=== PATIENT | female | born 1985 | race Caucasian/White ===

== ENCOUNTER 2020-11-07 04:13 | Emergency (ER) | payer SELFPAY ==
[2020-11-07] MEDS ORDERED: NEOPOLHCSU LEFTEAR (15:17)
== END 2020-11-07 04:45 | disposition left against medical advice (07) ==
LOC: ER 04:13
DX: Z53.21 Procedure and treatment not carried out due to patient leaving prior to being seen by health care provider (principal)

== ENCOUNTER 2020-11-07 14:58 | Emergency (ER) | payer SELFPAY ==
[~2020-11-07] VITALS: Ht 157.5 cm; Wt 56.7 kg
[2020-11-07] MEDS ORDERED: NEOPOLHCSU LEFTEAR (15:17)
== END 2020-11-07 15:14 | disposition home or self-care (01) ==
LOC: ER 14:58
DX: H60.92 Unspecified otitis externa, left ear (principal)
CPT/HCPCS: 99282